=== PATIENT | female | born 1975 | race Caucasian/White ===

== ENCOUNTER 2017-06-13 09:26 | Emergency (ER) | payer OTHER ==
[2017-06-13 10:12] VITALS: BP 143/73
--- NOTE | 2017-06-13 10:27 | UC ---
Throat Pain/Nasal Geo HPI - HPI Summary HPI Summary: 41 Y/O female being seen for C/O sinus congestion with frontal sinus pain and L ear pressure. has had a cold for approximately two weeks and sinus pain and pressure began over the last several days. Discussed with Carlie elevated blood pressure. States has not been elevated over the course of her and she does not have a history of hypertensive heart disease. elevation likely due to current health complaint. There is no associated headache or edema. Carlie has follow up appt on 06/15 for glucose tolerance test and will have blood pressure rechecked at that time. All medical history and medications have been reviewed. - History of Current Complaint Hx Obtained From: Patient Hx Last Menstrual Period: March 20 ?: Yes - 28 weeks Onset/Duration: Gradual Onset, Lasting Weeks Severity: Mild Pain Intensity: 0 Pain Scale Used: 0-10 Numeric Cough: Nonproductive Associated Signs & Symptoms: Positive: Sinus Discomfort - Epiglottits Risk Factors Epiglottis Risk Factors: Negative <Alyson Rangel - Last Filed: 06/13/17 11:17> <Carlie Chowdary - Last Filed: 06/13/17 12:29> - History of Current Complaint Chief Complaint: UCGeneralIllness Stated Complaint: SINUS COMPLAINT Time Seen by Provider: 06/13/17 10:14 - Allergies/Home Medications Allergies/Adverse Reactions: Allergies Allergy/AdvReac Type Severity Reaction Status Date / Time No Known Allergies Allergy Verified 06/13/17 10:12 PMH/Surg Hx/FS Hx/Imm Hx Previously Healthy: Yes - Surgical History Surgical History: None - Social History Alcohol Use: None Substance Use Type: None Smoking Status (MU): Never Smoked Tobacco Have You Smoked in the Last Year: No - Immunization History Most Recent Influenza Vaccination: 06/29 Most Recent Tetanus Shot: 08/27 Most Recent Pneumonia Vaccination: n/a <Alyson Rangel - Last Filed: 06/13/17 11:17> Review of Systems Constitutional: Negative Skin: Negative Eyes: Negative ENT: Sinus Congestion, Sinus Pain/Tenderness Respiratory: Cough Cardiovascular: Negative Gastrointestinal: Negative Genitourinary: Negative Motor: Negative Neurovascular: Negative Musculoskeletal: Negative Neurological: Negative Psychological: Negative Is Patient Immunocompromised?: No All Other Systems Reviewed And Are Negative: Yes <Alyson Rangel - Last Filed: 06/13/17 11:17> Physical Exam Triage Information Reviewed: Yes Appearance: Well-Appearing Vital Signs: Initial Vital Signs Temp 97.6 F 06/13/17 10:06 Pulse 91 06/13/17 10:06 Resp 20 06/13/17 10:06 BP 143/73 06/13/17 10:06 Pulse Ox 99 06/13/17 10:06 Vital Signs Reviewed: Yes Eye Exam: Normal Eyes: Positive: Conjunctiva Clear ENT Exam: Other ENT: Positive: Nasal congestion, TMs normal Neck exam: Normal Neck: Positive: Supple, No Lymphadenopathy Respiratory Exam: Normal Respiratory: Positive: Lungs clear, Normal breath sounds Cardiovascular Exam: Normal Cardiovascular: Positive: RRR Musculoskeletal Exam: Normal Neurological Exam: Normal Psychological Exam: Normal Skin Exam: Normal <Alyson Rangel - Last Filed: 06/13/17 11:17> Vital Signs: Initial Vital Signs Temp 97.6 F 06/13/17 10:06 Pulse 91 06/13/17 10:06 Resp 20 06/13/17 10:06 BP 143/73 06/13/17 10:06 Pulse Ox 99 06/13/17 10:06 <Carlie Chowdary - Last Filed: 06/13/17 12:29> Throat Pain/Nasal Course/Dx - Differential Dx/Diagnosis Differential Diagnosis/HQI/PQRI: Pharyngitis, Sinusitis Provider Diagnoses: Sinusitis <Alyson Rangel - Last Filed: 06/13/17 11:17> Discharge <Alyson Rangel - Last Filed: 06/13/17 11:17> <Carlie Chowdary - Last Filed: 06/13/17 12:29> - Discharge Plan Condition: Stable Disposition: HOME Prescriptions: Amoxicillin/Clavulanate TAB* [Augmentin TAB 875*] 875 mg PO BID #10 tab Patient Education Materials: Sinusitis (ED) Referrals: Robin Aldana MD [Primary Care Provider] - Additional Instructions: Please take antibiotics as ordered. Follow up with your primary care physician as needed if symptoms do not improve or return to Urgent care. Attestation Statement User Type: Provider - I was available for consult. This patient was seen by the [facility]. The patient was not presented to, seen by, or examined by me. -Abelino <Carlie Chowdary - Last Filed: 06/13/17 12:29>
== END 2017-06-13 11:15 | disposition home or self-care (01) ==
LOC: UCEAST 09:26
DX: J32.9 Chronic sinusitis, unspecified (principal)
CPT/HCPCS: 99212; G0463